=== PATIENT | male | born 2000 | race Caucasian/White ===

== ENCOUNTER 2022-04-14 02:16 | Emergency (ER) | payer OTHER ==
[~2022-04-14] VITALS: Ht 172.7 cm; Wt 59.0 kg
== END 2022-04-14 03:56 | disposition home or self-care (01) ==
LOC: ER 02:16
DX: M79.641 Pain in right hand (principal); F17.210 Nicotine dependence, cigarettes, uncomplicated; V03.90XA Pedestrian on foot injured in collision with car, pick-up truck or van, unspecified whether traffic or nontraffic accident, initial encounter
CPT/HCPCS: 73130

== ENCOUNTER 2023-05-11 07:15 | Emergency (ER) | payer OTHER ==
[~2023-05-11] VITALS: Ht 170.2 cm; Wt 63.5 kg
[2023-05-11 07:46] VITALS: BP 132/68
== END 2023-05-11 09:40 | disposition home or self-care (01) ==
LOC: ER 07:15
DX: T15.01XA Foreign body in cornea, right eye, initial encounter (principal); F17.210 Nicotine dependence, cigarettes, uncomplicated; W44.D9XA Other magnetic metal objects entering into or through a natural orifice, initial encounter; Y93.89 Activity, other specified
CPT/HCPCS: 65205; 99283-25; A9270; A9270-GY